=== PATIENT | male | born 1975 | race Caucasian/White ===

== ENCOUNTER 2018-05-11 00:20 | Emergency (ER) | payer MEDICAID ==
[~2018-05-11] VITALS: Ht 182.9 cm; Wt 81.8 kg
[2018-05-11 01:35] VITALS: BP 151/89
== END 2018-05-11 02:03 | disposition home or self-care (01) ==
LOC: EMS 00:22
DX: R20.2 Paresthesia of skin (principal)
CPT/HCPCS: 93005; 99283